=== PATIENT | female | born 1960 | race African-American/Black ===

== ENCOUNTER 2016-08-23 10:53 | Emergency (ER) | payer OTHER ==
[~2016-08-23] VITALS: Ht 152.4 cm; Wt 68.0 kg
[~2016-08-23 10:53] MED LIST: ADULT LOW DOSE81 MG PO; AMLODIPINE BESY10 MG PO; ANUSOL OINTMENT24 GM RECTAL; APAP500 PO; BACTRIM DS TAB1 EACH PO; BENADRYL25 MG PO; CLEOCIN HCL300 MG PO; CLONIDINE PO; COLACE100 MG PO; GLYCOLAX POWDER17 GM; HYDROCHLOROTHIA25 M1 PO; IBUPROFEN 600600 M1 PO; KEFLEX500 MG PO; LIDOCAINE 22 %/30 GM; LISINOPRIL40 MG PO; MACROBID 100 M100 M1 PO; METAMUCIL PAC1 UDPK1; NORCO 5-325 TA1 EACH PO; NORVASC10 MG PO; PERCOCET PO; PROTONIX40 M2 PO; TAMSULOSIN HCL0.4 MG PO; VITAMINC500 PO; ZIAC 10/6.25 MG10 M1 PO; ZOFRAN 4 MG ORAL4 MG PO
[2016-08-23] MEDS ORDERED: NORFLEX100 MG PO (12:03)
[2016-08-23] MEDS ORDERED: MOBIC7.5 MG PO (12:03)
== END 2016-08-23 12:16 | disposition home or self-care (01) ==
LOC: ER 10:53
DX: S46.912A Strain of unspecified muscle, fascia and tendon at shoulder and upper arm level, left arm, initial encounter (principal); S29.012A Strain of muscle and tendon of back wall of thorax, initial encounter; V49.9XXA Car occupant (driver) (passenger) injured in unspecified traffic accident, initial encounter; I10 Essential (primary) hypertension; F10.99 Alcohol use, unspecified with unspecified alcohol-induced disorder; Y93.89 Activity, other specified; Y92.9 Unspecified place or not applicable; Y99.9 Unspecified external cause status

== ENCOUNTER 2016-11-06 05:33 | Emergency (ER) | payer OTHER ==
[~2016-11-06] VITALS: Ht 157.5 cm; Wt 72.6 kg
[~2016-11-06 05:33] MED LIST changes: +MOBIC7.5 MG PO; +NORFLEX100 MG PO
[2016-11-06] MEDS ORDERED: PREDNISONE50 MG PO (06:49)
== END 2016-11-06 08:09 | disposition home or self-care (01) ==
LOC: ER 05:33
DX: L50.8 Other urticaria (principal); I10 Essential (primary) hypertension; Z98.890 Other specified postprocedural states; F10.99 Alcohol use, unspecified with unspecified alcohol-induced disorder

== ENCOUNTER 2016-11-09 20:28 | Emergency (ER) | payer OTHER ==
[~2016-11-09] VITALS: Ht 152.4 cm; Wt 68.0 kg
[~2016-11-09 20:28] MED LIST changes: +PREDNISONE50 MG PO
[2016-11-09] MEDS ORDERED: HYDROXYZINE HCL25 M1 PO (20:34)
[2016-11-09] MEDS ORDERED: IVERMECTIN3 MG PO (21:21)
[2016-11-09] MEDS ORDERED: MEDROLDOSEPACK PO (21:21)
== END 2016-11-09 21:29 | disposition home or self-care (01) ==
LOC: ER 20:28
DX: B86 Scabies (principal); I10 Essential (primary) hypertension

== ENCOUNTER → 2017-09-01 | Outpatient (CLI) | payer OTHER ==
[~2017-09-01] MED LIST changes: +HYDROXYZINE HCL25 M1 PO; +IVERMECTIN3 MG PO; +MEDROLDOSEPACK PO
== END ==
LOC: RAD 14:49
DX: Z12.31 Encounter for screening mammogram for malignant neoplasm of breast (principal)

== ENCOUNTER 2019-03-23 18:42 | Emergency (ER) | payer OTHER ==
[~2019-03-23] VITALS: Ht 152.4 cm; Wt 66.2 kg
[2019-03-23 20:46] LABS: URINE BILIRUBIN NEGATIVE (Negative); URINE BLOOD NEGATIVE (Negative); URINE CLARITY CLEAR; URINE COLOR YELLOW; URINE GLUCOSE-RANDOM* NEGATIVE (Negative); URINE KETONES NEGATIVE (Negative); URINE LEUKOCYTES 3+ (Negative); URINE NITRITE NEGATIVE (Negative); URINE PROTEIN (DIPSTICK) NEGATIVE (Negative); URINE UROBILINOGEN 0.2 E.U./dl (0.2-1.0)
[2019-03-23 20:53] LABS: HYALINE CASTS 4-10 Moderate /LPF (None Seen); MUCUS 4-6 Moderate strn/LPF (None Seen); SQUAMOUS >10 Many /LPF (0-3)
[2019-03-23 20:54] LABS: CRYSTALS None Seen /LPF (None Seen); FINE GRANULAR CASTS 0-3 Few /LPF (None Seen); TRANSITIONAL EPITHEL CELL 0-3 Few /LPF (None Seen); URINE RBC 0-2 Rare /HPF (0-2)
[2019-03-23 21:52] LABS: HEMATOCRIT 43.1 % (37.0-47.0); HEMOGLOBIN 14.8 gm/dL (12.0-15.0); MCH 29.1 pg (26.0-34.0); MCHC 34.4 g/dL (28.0-37.0); MCV 84.6 fL (80.0-100.0); PLATELET COUNT 328 thou/uL (150-400); RBC 5.09 mil/uL (4.20-5.00); RDW 13.6 % (10.5-14.5); WBC 7.8 thou/uL (4.0-11.0)
[2019-03-23 22:05] LABS: ANION GAP 11 mmol/L (7-16); BUN 28 mg/dL (7-18); CALCIUM 9.6 mg/dL (8.5-10.1); CHLORIDE 102 mmol/L (98-107); CO2 24 mmol/L (21-32); CREATININE 1.6 mg/dL (0.6-1.0); GLUCOSE 118 mg/dL (74-106); POTASSIUM 3.8 mmol/L (3.5-5.1); SODIUM 137 mmol/L (136-145)
[2019-03-23 22:11] LABS: ALBUMIN 3.7 g/dL (3.4-5.0); SGOT 20 U/L (15-37); SGPT 27 U/L (30-65); TOTAL BILIRUBIN 0.4 mg/dL (<0.1-1.0); TOTAL PROTEIN 7.2 g/dL (6.4-8.2); TROPONIN-I <0.06 ng/mL (<0.06)
[2019-03-23 22:50] LABS: ABSOLUTE NEUTROPHILS 3.3 thou/uL (1.4-8.2)
[2019-03-24 00:31] VITALS: BP 125/74
--- NOTE | 2019-03-24 10:56 | EKG ---
[address] [address] [place] [address] ELECTROCARDIOGRAM REPORT Name: DIMITRISANGIE D [id number] Admission: 03/23/19 Attend Phys: Discharge: 03/24/19 Date of : 58 Report #: [id number] THIS REPORT FOR: //name// [facility] ED Test Date: 2019-03-23 Test Time: 19:12:41 Pat Name: ANGIE SHANKS Department: Room: Gender: F Sample Selector: [place] : 1960 Requested By: Luis Armando Singh Order Number: [id number] MD: Juarez Veras Measurements Intervals [place] Rate: 102 P: 45 [place]: 152 QRS: 19 QRSD: 78 T: 13 QT: 357 QTc: 466 Interpretive Statements Sinus tachycardia Left atrial enlargement Compared to ECG 06/18/2014 15:45:53 Atrial abnormality now present Sinus rhythm no longer present Left ventricular hypertrophy no longer present ST (T wave) deviation no longer present Possible ischemia no longer present Electronically Signed On 03-24-2019 10:55:52 CDT by Juarez Veras [email or web address] <ELECTRONICALLY SIGNED> By: Juarez Veras MD 03/24/19 1055 11 11 Juarez Veras MD /LALI
== END 2019-03-24 00:33 | disposition home or self-care (01) ==
LOC: ER 18:42
PROVIDERS: Physician Assistant
DX: R55 Syncope and collapse (principal); R10.13 Epigastric pain; R19.7 Diarrhea, unspecified; I10 Essential (primary) hypertension; Z98.890 Other specified postprocedural states

== ENCOUNTER 2021-03-21 14:56 | Emergency (ER) | payer OTHER ==
[~2021-03-21] VITALS: Ht 149.9 cm; Wt 69.4 kg
[2021-03-21 14:58] VITALS: BP 138/81
== END 2021-03-21 15:55 | disposition home or self-care (01) ==
LOC: ER 14:56
DX: S90.511A Abrasion, right ankle, initial encounter (principal); T63.441A Toxic effect of venom of bees, accidental (unintentional), initial encounter; I10 Essential (primary) hypertension; Z79.899 Other long term (current) drug therapy; W19.XXXA Unspecified fall, initial encounter; Y93.89 Activity, other specified; Y92.89 Other specified places as the place of occurrence of the external cause; Y99.8 Other external cause status